=== PATIENT | male | born 1970 | race Caucasian/White ===

== ENCOUNTER 2018-10-25 09:40 | Emergency (ER) | payer BC ==
[2018-10-25 09:46] VITALS: TEMP 97.5
[2018-10-25 10:35] LABS: D-Dimer 0.24 mg/L FEU (<0.60); Prothrombin Time 10.4 sec (9.0-12.0)
[2018-10-25 10:36] LABS: ALT 32 U/L (21-72); AST 28 U/L (17-59); African American GFR (CKD) >90 (>60 ml/min/1.73 sqM); Albumin 4.3 g/dL (3.5-5.0); Alkaline Phosphatase 85 U/L (38-126); Anion Gap 8 mmol/L; Blood Urea Nitrogen 15 mg/dL (9-20); Calcium 9.4 mg/dL (8.4-10.2); Carbon Dioxide 24 mmol/L (22-30); Chloride 107 mmol/L (98-107); Creatine Kinase 50 U/L (55-170); Glucose 92 mg/dL (74-99); Magnesium 2.1 mg/dL (1.6-2.3); Potassium 4.6 mmol/L (3.5-5.1); Sodium 139 mmol/L (137-145); Total Bilirubin 0.2 mg/dL (0.2-1.3); Total Protein 6.9 g/dL (6.3-8.2)
[2018-10-25 10:41] LABS: Basophils # (A) 0.1 k/uL (0-0.2); Basophils % (A) 1 %; Eosinophils # (A) 0.2 k/uL (0-0.7); Eosinophils % (A) 3 %; HCT 45.2 % (39.0-53.0); HGB 15.3 gm/dL (13.0-17.5); Lymphocytes # (A) 1.2 k/uL (1.0-4.8); Lymphocytes % (A) 19 %; MCH 30.1 pg (25.0-35.0); MCHC 33.8 g/dL (31.0-37.0); MCV 89.1 fL (80.0-100.0); Mean Platelet Volume 7.4; Monocytes # (A) 0.4 k/uL (0-1.0); Monocytes % (A) 7 %; Neutrophils # (A) 4.4 k/uL (1.3-7.7); Neutrophils % (A) 69 %; Platelet Count 280 k/uL (150-450); RBC 5.07 m/uL (4.30-5.90); RDW 14.2 % (11.5-15.5); WBC 6.5 k/uL (3.8-10.6)
--- NOTE | 2018-10-25 11:28 | ED ---
Chest Pain HPI - General Chief Complaint: Chest Pain Stated Complaint: chest pain Time Seen by Provider: 10/25/18 09:44 Source: patient, RN notes reviewed Mode of arrival: ambulatory Limitations: no limitations - History of Present Illness Initial Comments: This is a 48-year-old male who is a smoker states she's had about one half weeks of chest pain. He states he feels like he was punched in the middle of the chest it does increase with breathing he states also increase with stress at his job currently is about 2/10 severity. 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 He has had some sweats with this. No cough no fevers or chills no phlegm production he does smoke approximately one PACs are as per day. Currently no other modifying factors MD Complaint: chest pain - Related Data Home Medications Medication Instructions Recorded Confirmed OXcarbazepine [Trileptal] 300 mg PO BID 10/25/18 10/25/18 Sertraline HCl [Zoloft] 50 mg PO HS 10/25/18 10/25/18 Sertraline HCl [Zoloft] 100 mg PO DAILY 10/25/18 10/25/18 Previous Rx's Medication Instructions Recorded Ibuprofen 800 mg PO Q6HR PRN #20 tablet 10/25/18 Allergies Allergy/AdvReac Type Severity Reaction Status Date / Time No Known Allergies Allergy Verified 10/25/18 10:09 Review of Systems ROS Statement: Those systems with pertinent positive or pertinent negative responses have been documented in the HPI. ROS Other: All systems not noted in ROS Statement are negative. EKG Findings - EKG Results: EKG: interpreted by SHABBIR, sinus rhythm (Normal sinus rhythm a 69, 148 QRS duration 104 QT/QTC 370/396 he does demonstrate an incomplete right bundle- branch block) Past Medical History Past Medical History: No Reported History History of Any Multi-Drug Resistant Organisms: None Reported Past Surgical History: No Surgical Hx Reported Past Psychological History: No Psychological Hx Reported Smoking Status: Current every day smoker Past Alcohol Use History: None Reported Past Drug Use History: None Reported General Exam - General Exam Comments Initial Comments: This a well-developed well-nourished awake alert oriented 3 male Limitations: no limitations General appearance: alert, in no apparent distress Head exam: Present: atraumatic, normocephalic, normal inspection Eye exam: Present: normal appearance, PERRL, EOMI. Absent: scleral icterus, conjunctival injection, periorbital swelling ENT exam: Present: normal exam, mucous membranes moist Neck exam: Present: normal inspection, full ROM, other (No stridor JVD or bruits). Absent: tenderness, meningismus, lymphadenopathy Respiratory exam: Present: normal lung sounds bilaterally. Absent: respiratory distress, wheezes, rales, rhonchi, stridor Cardiovascular Exam: Present: regular rate, normal rhythm, normal heart sounds. Absent: systolic murmur, diastolic murmur, rubs, gallop, clicks GI/Abdominal exam: Present: soft, normal bowel sounds. Absent: distended, tenderness, guarding, rebound, rigid Extremities exam: Present: normal inspection, full ROM, normal capillary refill. Absent: tenderness, pedal edema, joint swelling, calf tenderness Back exam: Present: normal inspection Neurological exam: Present: alert, oriented X3, CN II-XII intact Psychiatric exam: Present: normal affect, normal mood Skin exam: Present: warm, dry, intact, normal color. Absent: rash Course Vital Signs 10/25/18 10/25/18 09:42 12:52 Temperature 97.5 F L Pulse Rate 79 65 Respiratory 16 18 Rate Blood Pressure 132/78 124/88 O2 Sat by Pulse 97 100 Oximetry Procedures - Smoking Cessation Time Spent Discussing Smoking Cessation w/Patient (Minutes): 3 Patient Acknowledges Need for Cessation: Yes Chest Pain MDM - MDM I did review the imaging and report no acute findings. Patient is feeling improved the presentation is consistent with musculoskeletal/costochondritic pain. He will be discharged with follow-up with his doctor and was suggested they do get a stress test he also should stop smoking. Disposition Clinical Impression: Costochondritis, Chest wall syndrome, Smoking Disposition: HOME SELF-CARE Condition: Good Instructions (If sedation given, give patient instructions): Costochondritis (ED), Chest Pain (ED), How to Stop Smoking (ED) Additional Instructions: Prescription sent to your preferred pharmacy Prescriptions: Ibuprofen 800 mg PO Q6HR PRN #20 tablet PRN Reason: Pain Is patient prescribed a controlled substance at d/c from ED?: No Referrals: Rudolph Dominique DO [Primary Care Provider] - 1-2 days
--- NOTE | 2018-10-25 11:37 | XR ---
EXAMINATION TYPE: XR chest 2V DATE OF EXAM: 10/25/2018 COMPARISON: None HISTORY: 48-year-old male with chest pain TECHNIQUE: PA and lateral views FINDINGS: The cardiomediastinal silhouette, aorta, and pulmonary vasculature are within normal limits. Some str rufus areas of atelectasis are present. No consolidation or pleural effusion. IMPRESSION: No acute cardiopulmonary process.
[2018-10-25] MEDS ORDERED: KETOROLAC 30 MG/ML 1 ML VIAL IVP STA (12:17)
[2018-10-25 13:52] VITALS: BP 99/57; PULSE 66; RESP 16
== END 2018-10-25 13:52 | disposition home or self-care (01) ==
LOC: EC 09:40
DX: M94.0 Chondrocostal junction syndrome [Tietze] (principal); F17.210 Nicotine dependence, cigarettes, uncomplicated; Z71.6 Tobacco abuse counseling; Z79.899 Other long term (current) drug therapy; Z53.29 Procedure and treatment not carried out because of patient's decision for other reasons
CPT/HCPCS: 36415; 71046; 80053; 82550; 83690; 83735; 83880; 84484; 85025; 85379; 85610; 85730; 99284; 99406

== ENCOUNTER 2021-10-07 03:52 | Emergency (ER) | payer BC ==
[2021-10-07 03:58] VITALS: BP 117/69; PULSE 104; RESP 16; TEMP 98.1
--- NOTE | 2021-10-07 04:51 | ED ---
Extremity Problem HPI - General Source: patient, RN notes reviewed, old records reviewed Mode of arrival: ambulatory Limitations: no limitations - History of Present Illness MD Complaint: extremity pain, other (Left calf pain) -: days(s) (2) Location: left, lower extremity History of Same: No -: Yes myalgia Radiation: proximal Severity scale (1-10): 7 Quality: stabbing, aching Consistency: constant Improves with: nothing Worsens with: nothing Associated Symptoms: denies other symptoms <Fidel Issa - Last Filed: 10/07/21 04:49> <Fidel Guzmán - Last Filed: 10/07/21 07:59> - General Chief complaint: Extremity Problem,Nontraumatic Stated complaint: Left leg pain Time Seen by Provider: 10/07/21 04:01 - History of Present Illness Initial comments: This is a 51-year-old male to the ER for evaluation. Patient Dese for evaluation of severe Pain severe pain in his left leg and left calf. Patient is a concern for DVT. No prior history of DVT or blood clots. No recent trauma no long travel history no surgeries no significant risk factors for DVT. Patient has no medical history and takes no medication (Fidel Issa) - Related Data Home Medications Medication Instructions Recorded Confirmed OXcarbazepine [Trileptal] 300 mg PO BID 10/25/18 10/25/18 Sertraline HCl [Zoloft] 50 mg PO HS 10/25/18 10/25/18 Sertraline HCl [Zoloft] 100 mg PO DAILY 10/25/18 10/25/18 Previous Rx's Medication Instructions Recorded Ibuprofen 800 mg PO Q6HR PRN #20 tablet 10/25/18 Albuterol Inhaler [Ventolin Hfa 1 - 2 puff INHALATION RT-Q6H PRN 05/06/19 Inhaler] #1 inhaler Azithromycin [Zithromax Z-pack (6 0 mg PO DIRECTED #1 pack 05/06/19 tabs)] predniSONE 20 mg PO DAILY #5 tab 05/06/19 Ibuprofen [Motrin] 600 mg PO Q6HR PRN #20 tab 10/07/21 Allergies Allergy/AdvReac Type Severity Reaction Status Date / Time bee venom protein (honey bee) Allergy Anaphylaxis Verified 10/07/21 03:55 Review of Systems ROS Other: All systems not noted in ROS Statement are negative. <Fidel Issa - Last Filed: 10/07/21 04:49> ROS Other: All systems not noted in ROS Statement are negative. <Fidel Guzmán - Last Filed: 10/07/21 07:59> ROS Statement: Those systems with pertinent positive or pertinent negative responses have been documented in the HPI. Past Medical History Past Medical History: No Reported History History of Any Multi-Drug Resistant Organisms: None Reported Past Surgical History: No Surgical Hx Reported Past Psychological History: Bipolar Smoking Status: Current every day smoker Past Alcohol Use History: None Reported Past Drug Use History: Marijuana <Fidel Issa - Last Filed: 10/07/21 04:49> General Exam Limitations: no limitations General appearance: alert, in no apparent distress Head exam: Present: atraumatic, normocephalic, normal inspection Eye exam: Present: normal appearance, PERRL, EOMI. Absent: scleral icterus, conjunctival injection, periorbital swelling ENT exam: Present: normal exam, mucous membranes moist Neck exam: Present: normal inspection. Absent: tenderness, meningismus, lymphadenopathy Respiratory exam: Present: normal lung sounds bilaterally. Absent: respiratory distress, wheezes, rales, rhonchi, stridor Cardiovascular Exam: Present: regular rate, normal rhythm, normal heart sounds. Absent: systolic murmur, diastolic murmur, rubs, gallop, clicks GI/Abdominal exam: Present: soft, normal bowel sounds. Absent: distended, tenderness, guarding, rebound, rigid Extremities exam: Present: normal inspection, full ROM, tenderness (Tenderness to left calf), normal capillary refill. Absent: pedal edema, joint swelling, calf tenderness Back exam: Present: normal inspection Neurological exam: Present: alert, oriented X3, CN II-XII intact Psychiatric exam: Present: normal affect, normal mood Skin exam: Present: warm, dry, intact, normal color. Absent: rash <Fidel Issa - Last Filed: 10/07/21 04:49> Course <Fidel Issa - Last Filed: 10/07/21 04:49> Vital Signs 10/07/21 03:55 Temperature 98.1 F Pulse Rate 104 H Respiratory 16 Rate Blood Pressure 117/69 O2 Sat by Pulse 98 Oximetry - Reevaluation(s) Reevaluation #1: 10/07/21 04:51 Medical record is reviewed (Fidel Issa) Medical Decision Making <Fidel Guzmán - Last Filed: 10/07/21 07:59> - Medical Decision Making Ultrasound shows no DVT. I will back into the room and reexamined the patient any movement leg causes pain on the medial aspect of his gastrocnemius muscle. Touching the muscle also cause pain. Patient has good pulses and no swelling or redness in the area (Fidel Guzmán) Disposition <Fidel Issa - Last Filed: 10/07/21 04:49> Is patient prescribed a controlled substance at d/c from ED?: No Time of Disposition: 07:58 <Fidel Guzmán - Last Filed: 10/07/21 07:59> Clinical Impression: Gastrocnemius strain Disposition: ADMITTED IP TO THIS HOSP Prescriptions: Ibuprofen [Motrin] 600 mg PO Q6HR PRN #20 tab PRN Reason: For pain Referrals: Rudolph Dominique DO [Primary Care Provider] - 1-2 days
--- NOTE | 2021-10-07 07:24 | US ---
EXAMINATION TYPE: US venous doppler duplex LE LT DATE OF EXAM: 10/07/2021 7:11 AM COMPARISON: NONE CLINICAL HISTORY: DVT. SIDE PERFORMED: Left TECHNIQUE: The lower extremity deep venous system is examined utilizing real time linear array sonog amelia with graded compression, doppler sonography and color-flow sonography. VESSELS IMAGED: Common Femoral Vein Deep Femoral Vein Greater Saphenous Vein * Femoral Vein Popliteal Vein Small Saphenous Vein * Proximal Calf Veins (* superficial vessels) Grayscale, color doppler, spectral doppler imaging performed of the deep veins of the left lower extr emity. There is normal flow, compressibility, vascular waveforms. Left Leg: Appears negative for DVT, area of pain scanned at peroneals and PTV's all patent. IMPRESSION: No evidence for deep vein thrombosis of the left lower extremity.
== END 2021-10-07 08:30 | disposition home or self-care (01) ==
LOC: EC 03:52
DX: S86.812A Strain of other muscle(s) and tendon(s) at lower leg level, left leg, initial encounter (principal); F17.200 Nicotine dependence, unspecified, uncomplicated; Z91.030 Bee allergy status; X58.XXXA Exposure to other specified factors, initial encounter
CPT/HCPCS: 99283